=== PATIENT | female | born 1995 ===

== ENCOUNTER 2019-01-14 21:17 | Emergency (ER) | payer OTHER ==
[~2019-01-14] VITALS: Ht 152.4 cm; Wt 90.7 kg
[~2019-01-14 21:17] MED LIST: ALLERGY MEDS
[2019-01-14 23:46] LABS: Influenza A Positive (NEGATIVE); Influenza B Negative (NEGATIVE)
[2019-01-15] MEDS ORDERED: ONDA4ODT MM (00:08)
== END 2019-01-15 00:28 | disposition home or self-care (01) ==
LOC: ER 21:17
PROVIDERS: Emergency Medicine
DX: J10.1 Influenza due to other identified influenza virus with other respiratory manifestations (principal)
CPT/HCPCS: 87804; 99283; A9270-GY